=== PATIENT | male | born 2000 | race Two or more races ===

== ENCOUNTER 2025-01-06 22:52 | Emergency (ER) | payer MEDICAID, SELFPAY ==
[2025-01-06 22:54] VITALS: BMI 25.0
[2025-01-06 22:59] VITALS: BP 145/88; PULSE 65; RESP 17; TEMP 36.8; O2SAT 100
--- NOTE | 2025-01-06 23:05 | EDNOTE_ITS ---
ED Skin Abcess FB-RME/HPI General Chief complaint: Skin/Abscess/Foreign Body Stated complaint: RIGHT ARM SWELLING Time Seen by Provider: 01/06/25 22:53 Arrival date/time: 01/06/25 22:52 This is a case of 24-year-old male who came in in the emergency room due to right forearm redness and swelling secondary to bug bite or insect bite for 3 days persistence of the symptoms this patient decided to sought consult here in the emerged room Limitations: no limitations Related Data Previous Rx's ?Medication ?Instructions ?Recorded cephalexin 500 mg capsule 500 mg PO QID 10 days #40 ca ps 01/06/25 Allergies Allergy/AdvReac Type Severity Reaction Status Date / Time No Known Allergies Allergy Verified 01/06/25 22:53 Review of Systems Review of Systems Systems Reviewed: All systems reviewed, normal except as documented Constitutional Constitutional: Reports system reviewed and no additional complaints, except as documented and Reports as per HPI Cardiovascular Cardiovascular: Reports system reviewed and no additional complaints, except as documented and Reports as per HPI Respiratory Respiratory: Reports system reviewed and no additional complaints, except as documented and Reports as per HPI Gastrointestinal Gastrointestinal: Reports system reviewed and no additional complaints, except as documented and Reports as per HPI Musculoskeletal Musculoskeletal: Reports system reviewed and no additional complaints, except as documented and Reports as per HPI Integumentary/Breasts Skin/Breast: Reports other (Redness swelling on the right forearm) Neurologic Neurologic: Reports system reviewed and no additional complaints, except as documented and Reports as per HPI Past Medical History Social History SMOKING STATUS: Never smoker ED Exam General Limitations: Present no limitations General appearance: Present alert, in no apparent distress and other (Patient is awake alert oriented not in distress nontoxic looking) Head Head exam: Present atraumatic, normocephalic and normal inspection Eye Eye exam: Present normal appearance, PERRL and EOMI ENT ENT exam: Present normal exam, normal oropharynx and mucous membranes moist Neck Neck exam: Present normal inspection, full ROM and trachea midline Chest Chest inspection: Present normal inspection and symmetric chest wall rise Respiratory Respiratory exam: Present normal lung sounds bilaterally; Absent respiratory distress, wheezes, stridor, accessory muscle use or prolonged expiratory phase Cardiovascular Cardiovascular exam: Present regular rate, normal rhythm and normal heart sounds; Absent bradycardia, tachycardia, irregular rhythm, systolic murmur or diastolic murmur Abdominal Exam Abdominal exam: Present soft and normal bowel sounds Extremities Exam Extremities exam: Present normal inspection and full ROM Expanded Upper Extremity Exam Forearm/Wrist exam: Present tenderness (Mild tenderness on the right forearm), swelling (Mild swelling) and erythema (Noted redness on the right forearm on the area of the insect bite ROM intact neurovascular intact); Absent abrasion, laceration, ecchymosis, deformity, crepitus, dislocation, tenderness over rhys omical snuff box or pain with axial thumb loading Back Exam Back exam: Present normal inspection and full ROM Neurological Exam Neurological exam: Present alert, oriented X3, CN II-XII intact, normal gait and reflexes normal; Absent motor sensory deficit Psychiatric Psychiatric exam: Present normal affect and normal mood Skin Skin exam: Present warm, dry, intact, normal color and other (Mild redness on the right forearm no abscess no cellulitis) Course Quality Measures none Orders Category Date Time Status DiphenhydrAMINE [Benadryl] Med 01/06/25 23:04 Once 25 mg PO X1 ONE predniSONE Med 01/06/25 23:04 Once 20 mg PO X1 ONE Vital Signs Vital signs: Vital Signs Temperature 98.2 F 01/06/25 22:59 Pulse Rate 65 01/06/25 22:59 Respiratory Rate 17 01/06/25 22:59 Blood Pressure 145/88 H 01/06/25 22:59 Pulse Oximetry (%) 100 01/06/25 22:59 Oxygen Delivery Method Room Air 01/06/25 22:59 Patient is afebrile not tachycardic not tachypneic BP stable not hypoxic oxygen saturation in room air Skin / Abscess / Foreign Body MDM Narrative MDM Narrative:: This is a case of 24-year-old male who came in in the emergency room due to right forearm redness and swelling secondary to bug bite or insect bite for 3 days persistence of the symptoms this patient decided to sought consult here in the emerged room physical examination patient is awake alert oriented not in distress nontoxic looking well-hydrated well-nourished patient tetanus shot is up-to-date noted some redness and swelling on the right forearm secondary to insect bite or bug bite tender to touch no fluctuance not indurated no abscess no cellulitis based on my physical examination and history patient symptoms suggestive of local reaction on the insect bite versus infected insect bite patient was given prednisone and Benadryl here in the emergency room and prescribed cephalexin for the infection patient will follow-up with PCP in 2 days for reevaluation and for any worsening symptoms return precaution in the emergency room was advised Patient was discharged with comfortable condition walking with stable gait. Patient verbalized no further complains explained diagnosis and answered patient question. Patient is comfortable with the proposed management plan including th e need to follow up with his/her primary care physician and any specialist if applicable Discussed patient for any urgent condition or worsening sx, He/She needed to go to emergency room immediately or call 911. Patient acknowledge the responsibility to follow up as instructed and to monitor her/his symptoms. For any persistence of the symptoms for more than 3-5 days return precaution advised. Discussed the result of the test and was given printed discharge instruction Patient data External records reviewed:: [facility] previous records Clinical information provided by:: patient Social determinants that could affect healthcare access:: none Patient has the following chronic illnesses:: None How is presenting disease/condition affected by chronic disease/condition?: no chronic disease (None) Evaluation data The following diagnostics were reviewed and interpreted by me:: other (specify) (None) Lab and/or radiology exams considered but not ordered:: None Interpretation Summary: None Medications / Prescriptions Medications or Prescriptions considered but not ordered:: Given Medication administrations:: Medication Administration History Diphenhydramine HCl (Diphenhydramine 25 Mg Capsule) 25 mg PO X1 ONE Stop: 01/06/25 23:05 Prednisone (Prednisone 20 Mg Tablet) 20 mg PO X1 ONE Stop: 01/06/25 23:05 Given Consultations Consultation(s) initiated? (list below): No Diagnosis Skin/Abscess Differential Diagnosis: abscess of skin or subcutaneous tissue, urticaria, cellulitis, insect bites, contact dermatitis and other Most likely diagnosis given after review of the tests above:: Infected insect bite Admission Indicated Admission indicated?: not indicated Explain why admission is indicated or not indicated:: Not indicated Admission Request Was there a request for admission?: No Admission Attestation Admission request attestation: Not indicated Disposition Plan Disposition Plan: Discharge Discharge Attestation Discharge Attestation: The patient and all family members were given an opportunity to ask questions a nd understood the discharge instructions. Discharge instructions specifically effects, indications for sooner follow up or return to the emergency department, and the expected course of current diagnosis. Patient condition: Stable Discharge Plan Plan Patient Disposition: HOME (Self Care) Patient condition on transfer: Stable Prescriptions/Referrals Prescriptions/Med Rec: New cephalexin 500 mg capsule 500 mg PO QID 10 Days Qty: 40 0RF Problem List Clinical Impression: Infected insect bite Patient/Caregiver Discharge Instructions Education Materials: ED Insect Sting, Local Reaction, ED Insect Sting/Bite, Infected Additional Instructions: Follow-up with your primary care physician in 2 days for reevaluation worsening symptoms or any emergent concerns such as redness swelling discharge from the wound pain fever chills call 911 or go to the nearest emergency room take your medication as directed finish the course of antibiotic keep the area clean and dry Print Language: Serbian Stand Alone Forms: Alexandra Award Info., Patient Portal Info Letter PA/FLIGHT TEST SUPERVISOR Supervising Physician PA/FLIGHT TEST SUPERVISOR Supervising Physician: Dr olsen
== END 2025-01-06 23:29 | disposition home or self-care (01) ==
LOC: SERX 23:11
PROVIDERS: Emergency Provider Emergency Medicine
DX: S50.861A Insect bite (nonvenomous) of right forearm, initial encounter (principal); L08.9 Local infection of the skin and subcutaneous tissue, unspecified; W57.XXXA Bitten or stung by nonvenomous insect and other nonvenomous arthropods, initial encounter
CPT/HCPCS: 99283; J7512; A9270